=== PATIENT | male | born 1980 | race Caucasian/White ===

== ENCOUNTER 2016-07-30 10:22 | Inpatient (IN) | payer OTHER ==
[2016-07-14 10:27] VITALS: BMI 36.0
[~2016-07-30] VITALS: Ht 180.3 cm; Wt 118.2 kg
[2016-07-30] VITALS (7 sets, daily range): BP systolic 114–145; BP diastolic 70–80; PULSE 87–101; TEMP 36.3–37; O2SAT 92–96; Ht 180.3 cm; Wt 118.2 kg
[~2016-07-30 10:22] MED LIST: CEFAZOLIN 2000 MG/60 ML D5W IV SCH; DIAZ10TA PO; LACTATED RINGER'S 1000ML 1,000 ML IV SCH; LYR50 PO; METO25TA56 PO; OXYC-57 PO
[2016-07-30] MEDS ORDERED: CYCL10TA6 PO (10:49)
--- NOTE | 2016-07-30 12:06 | History & Physical Bridge Note ---
H&P Re-Evaluation Bridge Note: I have examined the patient, reviewed the History & Physical and in the interval since the performance of the History & Physical I have noted the following changes of clinical significance: No changes noted
--- NOTE | 2016-07-30 12:07 | History and Physical ---
History & Physical Date Jul 30, 2016. Chief Complaint back and leg pain History of Present Illness The patient is a 36 year old male with complaints of Additional History Hepatic Disease: No Endocrine Disorder: No Kidney Disease: No Hypertension: No Heart Disease: No Bleeding Tendencies: No Infectious Diseases: No Allergies Coded Allergies: No Known Allergies (Unverified , 07/30/16) Home Medications Scheduled Cyclobenzaprine Hcl (Flexeril), 10 MG PO BID Metoprolol Tartrate (Lopressor) (Lopressor), 25 MG PO QAM Pregabalin (Lyrica), 150 MG PO TID Scheduled PRN Diazepam (Valium), 10 MG PO TID PRN for RN Oxycodone/Acetaminophen 5MG/325MG (Percocet 5MG/325MG), 1-2 TABLET PO Q4-6H PRN for Pain Physical Examination Skin: warm/dry, no rash Eyes: normal inspection, EOMI, sclerae normal ENT: normal ENT inspection, pharynx normal Head: normocephalic, atraumatic Neck: supple, no adenopathy, trachea midline Respiratory/Chest: lungs clear, normal breath sounds, no respiratory distress Cardiovascular: regular rate, rhythm, no edema, no murmur Abdomen / GI: normal bowel sounds, non tender Back: normal inspection Extremities: normal inspection, normal range of motion Neurologic/Psych: no motor/sensory deficits, alert, normal reflexes, oriented x 3 Diagnosis lumbar stenosis Plan of Treatment revision decompression fusion L3-4
[2016-07-30] MEDS ORDERED: MIDAZOLAM HCL 1 MG/ML 2ML VIAL ONE (12:12)
[2016-07-30] MEDS ORDERED: FENTANYL CITRATE INJ 50 MCG/1 ML 2 ML VIAL ONE ×2 (12:12→13:14)
[2016-07-30] MEDS ORDERED: BUPIVACAINE/EPINEPHRINE 0.5% MPF 1:200,000 30 ML VIAL ONE (12:39)
[2016-07-30] MEDS ORDERED: SODIUM CHLORIDE 0.9% PF 50 ML VIAL ONE (12:39)
[2016-07-30] MEDS ORDERED: BACITRACIN 50000 UNIT VIAL ONE (12:39)
[2016-07-30] MEDS ORDERED: HYDROmorphone INJ 2 MG/ML SYR/VIAL ONE (13:14)
[2016-07-30] MEDS ORDERED: ONDANSETRON INJ 2 MG/ML 2 ML VIAL IV PRN ×2 (13:30→14:15)
[2016-07-30] MEDS ORDERED: PROMETHAZINE HCL INJ 6.25 MG in SODIUM CHLORIDE 0.9% 50ML 50 ML IV PRN (13:30)
[2016-07-30] MEDS ORDERED: ATROPINE SULFATE 0.1 MG/ML 5ML SYR IV PRN (13:30)
[2016-07-30] MEDS ORDERED: EpHEDrine SULFATE INJ 50 MG/ML AMP IV PRN (13:30)
[2016-07-30] MEDS ORDERED: PHENYLEPHRINE HCL INJ 10 MG/ML VIAL ONE (13:52)
[2016-07-30] MEDS ORDERED: ONDANSETRON INJ 2 MG/ML 2 ML VIAL ONE ×2 (13:57→14:26)
[2016-07-30] MEDS ORDERED: ROCURONIUM BROMIDE 10 MG/ML 5 ML VIAL ONE (13:57)
[2016-07-30] MEDS ORDERED: PROPOFOL IV EMULSION 10 MG/ML 20 ML VIAL IV ONE (13:57)
[2016-07-30] MEDS ORDERED: DEXAMETHASONE SOD INJ 4 MG/ML VIAL ONE (13:57)
[2016-07-30] MEDS ORDERED: LIDOCAINE HCL 2% 2 ML VIAL (20MG/ML) ONE (13:57)
[2016-07-30] MEDS ORDERED: DURASEAL DURAL SEALANT 5ML TOP ONE (14:07)
[2016-07-30] MEDS ORDERED: SODIUM CHLORIDE 0.9% 1000ML 1,000 ML IV SCH (14:15)
[2016-07-30] MEDS ORDERED: hydrOXYzine HCL 25 MG TAB PO PRN (14:15)
[2016-07-30] MEDS ORDERED: SOD PHOSPHATE/SOD BIPHOSPHATE ENEMA 132 ML BTL PR PRN (14:15)
[2016-07-30] MEDS ORDERED: ACETAMINOPHEN IV 100 ML IV PRN (14:15)
[2016-07-30] MEDS ORDERED: BISACODYL 10 MG SUPP PR PRN (14:15)
[2016-07-30] MEDS ORDERED: DO NOT ADMINISTER PNEUMOCOCCAL VACCINE PRN ×2 (14:15)
[2016-07-30] MEDS ORDERED: MAGNESIUM HYDROXIDE SUSP 30 ML UDC PO PRN (14:15)
[2016-07-30] MEDS ORDERED: DO NOT ADMINISTER FLU VACCINE PRN ×3 (14:15)
[2016-07-30] MEDS ORDERED: FAMOTIDINE 20 MG TAB PO PRN (14:15)
[2016-07-30] MEDS ORDERED: NALOXONE HCL 0.4 MG/1 ML VIAL/CARP IV PRN ×2 (14:15)
[2016-07-30] MEDS ORDERED: PROMETHAZINE HCL INJ 12.5 MG in SODIUM CHLORIDE 0.9% 50ML 50 ML IV PRN (14:15)
[2016-07-30] MEDS ORDERED: LORAZEPAM INJ 0.5 MG in SYRINGE 0.75 ML IV PRN (14:15)
[2016-07-30] MEDS ORDERED: ALUMINUM/MAGNESIUM SUSP 30 ML UDC PO PRN (14:15)
[2016-07-30] MEDS ORDERED: METOCLOPRAMIDE HCL INJ 5 MG/ML 2 ML VIAL IV PRN (14:15)
--- NOTE | 2016-07-30 14:25 | DIAGNOSTIC IMAGING REPORT ---
LUMBAR SPINE 2 OR 3 VIEW CLINICAL HISTORY: L3-L4 Decompression/Fusion COMPARISON STUDY: No previous studies for comparison. Fluoroscopy time: 18 seconds. FINDINGS: 2 fluoroscopic images were obtained. Exact localization is difficult on this exam given partial visualization of the lumbar spine. There is a posterior decompression. There are bilateral pedicle screws likely at the L3 and L4 levels. IMPRESSION: Fluoroscopic images demonstrating an L3-L4 decompression and bilateral pedicle screw fusion Electronically signed by: Santiago Lopez M.D. 07/30/2016 2:24 PM Dictated Date/Time: 07/30/2016 2:23 PM
[2016-07-30] MEDS ORDERED: NEOSTIGMINE METHYLSULFATE 1 MG/ML 10ML VIAL ONE (14:26)
[2016-07-30] MEDS ORDERED: GLYCOPYRROLATE INJ 0.2 MG/ML VIAL ONE (14:26)
[2016-07-30] MEDS ORDERED: KETOROLAC TROMETHAMINE 30 MG/ML VIAL ONE (14:26)
[2016-07-30] MEDS ORDERED: FLOSEAL HEMOSTATIC MATRIX 10ML TOP ONE (14:29)
[2016-07-30] MEDS: HYDROmorphone HCL 0.5MG/ML 50 ML CASSETTE IV PRN ×3 (14:52→22:52)
[2016-07-30] MEDS: FENTANYL CITRATE INJ 50 MCG/1 ML 2 ML VIAL IV PRN ×4 (14:53→15:08)
[2016-07-30] MEDS ORDERED: LORAZEPAM 2 MG/ML 1 ML VIAL ONE (15:16)
[2016-07-30] MEDS ORDERED: NURSING VERBAL MED ORDER ONE (15:30)
[2016-07-30] MEDS: HYDROmorphone INJ 1 MG/ML SYR IV PRN ×4 (15:30→15:48)
--- NOTE | 2016-07-30 16:06 | OPERATIVE REPORT ---
DATE OF OPERATION: 07/30/2016 PREOPERATIVE DIAGNOSES: Spinal stenosis and degenerative disk disease, L3-L4. POSTOPERATIVE DIAGNOSES: Same with dural ectasia. PROCEDURES PERFORMED: 1. Revision decompression, L3-L4. 2. Posterior spinal fusion, L3-L4. 3. Placement of posterior instrumentation using Orthros rods and screws, L3-L4. 4. Placement of Infuse collagen sponge combined with Mastergraft and Lindsay bone grafting in the posterior gutters. 5. Placement of locally harvested morselized autograft in the posterior gutters. SURGEON: Dr. Norman Ortiz. HEAD OF HUMAN RESOURCES: Kojo Enriquez PA-C. Due to the complex nature of the procedure, the entire surgery was performed with the assistant tennis coach of Kojo Enriquez PA-C. The healthcare administrative assistant, under direct supervision, was involved in the actual performance of all aspects of the surgical procedure including hemostasis, tissue retraction and incision, instrument management, patient positioning, and wound closure. ANESTHESIA: General. DISPOSITION: The patient awakened and taken to PACU in stable condition. HISTORY OF PATIENT'S PROBLEMS: A 36-year-old male that presents with above-mentioned diagnoses. After failing an extensive course of nonoperative care, he elected to undergo the above-mentioned procedures. Risks, benefits, pros, cons, and alternatives were outlined in detail preoperatively. DESCRIPTION OF PROCEDURE: The patient was met with preoperatively, the case discussed and all questions were addressed. At that point, the patient was taken back to operative suite and after undergoing successful general intubation by the department of anesthesia, he was placed in prone position on Socrates table atop Bienvenido frame. All bony prominences were well padded and the eyes were inspected to ensure there was no external pressure placed upon them. At this point, the lumbar spine was prepped and draped in normal sterile fashion. Sharp dissection with the assistance of Bovie cautery was performed down to exposing the remaining lamina and transverse processes of L3 and L4 bilaterally. From a caudal to cephalad fashion, we dissected through the previous scar and identified the bony parameter and began decompression. We could be noted marked lack of dura. We tried to extend to clean dural margins, but did note diffuse dural ectasia. Subsequently, we halted the decompression at this point, placed Duragen patch and DuraSeal over the laminotomy site and dural ectasia. I then proceeded to fuse the segment by placing pedicle screws in L3 and L4 bilaterally with assistance of fluoroscopy locking in the appropriate size david. Transverse processes of L3-L4 were then burred to subcortical bleeding bone. Infuse collagen sponge combined with Mastergraft and locally harvested morselized autograft was placed in the posterior gutters. Incision was then closed with 1-0 Vicryl in the fascia, 2-0 Vicryl subcutaneously, and 4-0 Monocryl for final skin closure. Steri-Strips and sterile dressing placed. The patient was awakened and taken to PACU in stable condition. I attest to the content of the Intraoperative Record and any orders documented therein. Any exceptio ns are noted below.
--- NOTE | 2016-07-30 16:09 | Anesthesiology Progress Note ---
Anesthesia Post Op Note Date & Time Jul 30, 2016 at 16:09 Vital Signs Pain Intensity: 6 Vital Signs Past 12 Hours Date Time Temp Pulse Resp B/P Pulse Ox O2 Delivery O2 Flow Rate FiO2 07/30/16 15:33 91 24 07/30/16 15:33 90 24 99 07/30/16 15:30 112/90 07/30/16 15:28 88 15 100 07/30/16 15:28 87 15 07/30/16 15:25 119/70 07/30/16 15:23 88 19 99 07/30/16 15:23 87 19 07/30/16 15:21 123/91 07/30/16 15:18 84 19 100 07/30/16 15:18 85 19 07/30/16 15:15 119/74 07/30/16 15:13 83 22 99 07/30/16 15:13 88 22 07/30/16 15:11 127/78 07/30/16 15:08 91 22 07/30/16 15:08 92 22 100 07/30/16 15:05 125/83 07/30/16 15:03 86 13 100 07/30/16 15:03 86 13 07/30/16 15:01 120/51 07/30/16 14:58 80 20 07/30/16 14:58 82 20 100 07/30/16 14:56 130/78 07/30/16 14:53 79 21 100 07/30/16 14:53 79 21 07/30/16 14:50 118/77 07/30/16 14:48 77 16 07/30/16 14:48 73 16 99 07/30/16 14:45 121/75 07/30/16 14:43 36.9 73 14 121/71 100 Mask 10 07/30/16 14:43 73 17 07/30/16 14:43 73 17 121/71 100 07/30/16 10:45 36.5 89 22 94 Room Air Notes Mental Status: alert / awake / arousable, participated in evaluation Pt Amnestic to Procedure: Yes Nausea / Vomiting: adequately controlled Pain: adequately controlled Airway Patency, RR, SpO2: stable & adequate BP & HR: stable & adequate Hydration State: stable & adequate Anesthetic Complications: no major complications apparent
[2016-07-30] MEDS: LACTATED RINGER'S 1000ML 1,000 ML IV SCH ×2 (16:47→21:14)
[2016-07-30] MEDS: DEXAMETHASONE INJ 6 MG in SYRINGE 0 ML IV SCH (20:02)
[2016-07-30] MEDS: CEFAZOLIN IV 2,000 MG in DEXTROSE 5% 50ML 50 ML IV SCH (20:02)
[2016-07-30] MEDS: DOCUSATE SODIUM/SENNA 50/8.6MG TAB PO SCH (21:14)
[2016-07-30] MEDS: PREGABALIN 150 MG CAP PO SCH (21:14)
[2016-07-30] MEDS: LORAZEPAM 0.5 MG TAB PO PRN (23:41)
[2016-07-31] VITALS (8 sets, daily range): BP systolic 120–148; BP diastolic 67–74; PULSE 86–111; TEMP 36.6–37.6; O2SAT 92–95
[2016-07-31] MEDS: DIAZEPAM 5MG TAB PO PRN ×2 (01:31→20:22)
[2016-07-31] MEDS: DEXAMETHASONE INJ 6 MG in SYRINGE 0 ML IV SCH ×2 (04:53→11:25)
[2016-07-31] MEDS: LACTATED RINGER'S 1000ML 1,000 ML IV SCH (04:53)
[2016-07-31] MEDS: CEFAZOLIN IV 2,000 MG in DEXTROSE 5% 50ML 50 ML IV SCH (04:53)
[2016-07-31] MEDS: ACETAMINOPHEN 500 MG TAB PO PRN (05:02)
[2016-07-31] MEDS ORDERED: NURSING VERBAL MED ORDER ONE (06:00)
[2016-07-31] MEDS ORDERED: DC PCA SCH (06:00)
[2016-07-31] MEDS: HYDROmorphone INJ 1 MG/ML SYR IV PRN ×5 (06:08→20:25)
[2016-07-31 06:50] LABS: BASO % 0.1 %; BASO ABS # 0.01 K/uL (0-0.2); COMPLETE YES; HEMATOCRIT 39.2 % (42-52); IG% 0.3 %; LYMPH % 5.9 %; LYMPH ABS # 0.89 K/uL (1.2-3.4); MEAN CELL VOLUME 89.1 fL (80-100); MEAN CORPUSCULAR HEMOGLOBIN 31.6 pg (25-34); MEAN CORPUSCULAR HGB CONC 35.5 g/dl (32-36); MEAN PLATELET VOLUME 10.6 fL (7.4-10.4); MONO % 4.5 %; NEUT % 89.2 %; PLATELET COUNT 215 K/uL (130-400)
[2016-07-31 07:20] LABS: BUN/CREATININE RATIO 12.8 (10-20); CALCIUM 8.9 mg/dl (8.5-10.1); POTASSIUM 3.9 mmol/L (3.5-5.1)
[2016-07-31] MEDS: PREGABALIN 150 MG CAP PO SCH ×3 (08:29→21:38)
[2016-07-31] MEDS: OXYCODONE HCL IR 5 MG TAB (IMMEDIATE RELEASE) PO PRN ×2 (08:30→15:59)
[2016-07-31] MEDS: NICOTINE 14 MG/24 HR TDSY TD SCH (09:00)
[2016-07-31] MEDS ORDERED: METOPROLOL TARTRATE 25 MG TAB PO SCH (09:00)
--- NOTE | 2016-07-31 10:37 | PROGRESS NOTE ---
DATE: 07/31/2016 SUBJECTIVE: Postop day #1. Back pain is controlled. Denies any headaches, nausea or vomiting. Denies any significant leg pain. Vital signs are stable. T max 37.1. PHYSICAL EXAMINATION: He has good strength at testing. He is cooperative, appears relatively comfortable. ASSESSMENT: Status post lumbar decompression and fusion. PLAN: At this time, I explained to the patient will maintain bed rest today. ____ intraoperatively with a dural ectasia and we must let things heal over the next 48 hours prior to any significant activity, he understands and agrees.
[2016-07-31] MEDS: KETOROLAC TROMETHAMINE 30 MG/ML VIAL IV PRN ×2 (11:29→20:18)
[2016-07-31] MEDS: HYDROmorphone INJ 0.5 MG/0.5 ML SYR IV PRN (17:37)
[2016-07-31] MEDS: HYDROCHLOROTHIAZIDE 25 MG TAB PO SCH (21:24)
[2016-07-31] MEDS: METOPROLOL TARTRATE 25 MG TAB PO SCH (21:26)
[2016-07-31] MEDS: DOCUSATE SODIUM/SENNA 50/8.6MG TAB PO SCH (21:39)
[2016-08-01] MEDS: HYDROmorphone INJ 1 MG/ML SYR IV PRN ×4 (02:15→16:13)
[2016-08-01] MEDS: KETOROLAC TROMETHAMINE 30 MG/ML VIAL IV PRN ×3 (02:57→23:55)
[2016-08-01] MEDS: HYDROmorphone INJ 0.5 MG/0.5 ML SYR IV PRN ×2 (03:23→19:38)
[2016-08-01] MEDS: POLYETHYLENE (MIRALAX) 17 GM PACK PO SCH ×3 (06:00→17:59)
[2016-08-01 07:25] VITALS: BP 142/87; PULSE 74; TEMP 36.7; O2SAT 94
[2016-08-01] MEDS ORDERED: RXC5 PO (08:44)
--- NOTE | 2016-08-01 08:45 | Discharge Instructions ---
Discharge Instructions Date of Service Aug 01, 2016. Admission Reason for Admission: Lumbar Spinal Stenosis Discharge Discharge Diagnosis / Problem: stenosis Discharge Goals Goal(s): Improve function Activity Recommendations Activity Limitations: per Instructions/Follow-up section . Instructions / Follow-Up Instructions / Follow-Up ACTIVITY RECOMMENDATIONS: SELF CARE INSTRUCTIONS AFTER THORACIC/LUMBAR FUSIONS 1. You may walk to your tolerance. It is good exercise for your legs and back. Expect some back and intermittent leg aches and pains. 2. You may perform "counter-top" level activities (make a sandwich, ian with a project, etc.). 3. No bending or lifting of more than 10 pounds or back twisting of any nature (roll like a log when turning in bed). 4. You may ride in a car for 20-30 minutes at a time. No driving until after your first visit with your doctor. 5. Frequent changes of position and restricting sitting to 30 minutes at a time will help limit the amount of back spasms and stiffness you may experience. 6. You may discontinue the use of ambulatory aids (cane, crutches, etc.) once your strength and confidence allow. 7. You may manager of maintenance the shower and let water strike your incision when you arrive home at least once daily. Do not take a tub bath, sit in a hot tub or go into a swimming pool until after your first recheck in the office. SPECIAL CARE INSTRUCTIONS: VERY IMPORTANT TO READ AND REVIEW A. Your surgical incision has been closed with a cosmetic suture under the skin that will dissolve in about 6 weeks. In 14 days, you can use a pair of clean scissors and cut the suture that is left outside of the skin at the ends of your incision. 1. The small skin tapes can be removed 7 days after surgery if they have not fallen off by that point. 2. You may keep the wound open to air as much as possible to promote healing after post-op day number 5 unless told otherwise by your doctor. 3. If you think the wound looks like it is becoming infected (redness or worsening drainage) and/or you are experiencing fever, chill or worsening back pain and muscle spasms, contact the office so that we may evaluate you as soon as possible. B. Complications are uncommon, but please contact us if you have any signs or symptoms of: 1. wound infection (fever higher than 102.5 degrees F, redness, separation of wound, drainage, or increasing pain from the incision) 2. blood clots in legs (pain, swelling, redness and warmth in legs) 3. urinary tract infection (fever higher than 102.5 degrees F, burning upon urination or increased frequency of urination) 4. nerve problems (inability to walk on your toes or heels, numbness, loss of bowel or bladder control) 5. any other symptoms that concern you C. Please call the office at if you have any concerns or questions about your operation or recovery. D. No smoking! Smoking drastically decreases the chance of a solid fusion. E. Do not take any anti-inflammatory medications (Indocin, Advil, Motrin, Aspirin, Naprosyn, etc.) as these may inhibit the chance of a solid fusion. Tylenol is okay to take for pain. MANAGING PAIN AFTER SPINAL SURGERY 1. Narcotic medication is intended for short-term use and will be provided for surgical pain. Surgical pain usually lasts for a period of 4-6 weeks. Narcotic medication includes Percocet, Vicodin, Darvocet, Tylenol #3 or Lortab. 2. Longer-term pain is more appropriately treated with non-narcotic medication such as Tylenol ES. 3. Muscle spasm is not appropriately treated with narcotics. Muscle relaxers such as Soma, Flexeril or Skelaxin can be used along with Tylenol ES. 4. Remember that we all live with some "aches and pains". This is not unusual or uncommon after an injury or as we get older. a. Back pain is expected and may include muscle spasms for 4 to 6 weeks after surgery. The pain should gradually improve. If the pain worsens for no apparent reason, please contact the office. b. Intermittent leg pain may also be experienced and should not be concerned about unless it worsens for no apparent reason. If so, please contact the office. 5. We will provide appropriate medication within the normal guidelines of their prescribed use. We will also be very cautious and aware of potential abuse and extended duration of patients' medication needs. a. Pain medications are for your comfort and to assist with sleep and rest so that the tissue can heal. They are not provided in order to return to normal activity and should not be used through the day. To do so or worsening pain at night can result from ongoing tissue damage and development of tolerance to the prescribed medicine. 6. Please allow 2-3 days to process refills. Prescriptions will not be mailed but must be picked up at the office. FOLLOW UP VISIT: Keep your scheduled follow-up appointment. Any questions, please call the office at . Current Hospital Diet Patient's current hospital diet: Regular Diet Discharge Diet Recommended Diet: Regular Diet Procedures Procedures Performed: L3-L4 Revision Decompression, Posterior instrumented fusion, application of bone morphogenetic protein and Lindsay allograft Pending Studies Studies pending at discharge: no Medical Emergencies . Who to Call and When: Medical Emergencies: If at any time you feel your situation is an emergency, please call 911 immediately. . Non-Emergent Contact Non-Emergency issues call your: Primary Care Provider . "Provider Documentation" section prepared by Norman Ortiz. VTE Core Measure Inpt VTE Proph given/why not?: Doreen Ruff, SCD's
--- NOTE | 2016-08-01 09:29 | PROGRESS NOTE ---
DATE: 08/01/2016 SUBJECTIVE: Initially complained of back pain only. No leg pain. No headaches, nausea or vomiting. Vital signs stable. T-max 36.7. On exam, he has good strength to testing. Appears alert and oriented. We did get him up to a chair already this morning. ASSESSMENT: Status post lumbar decompression and fusion. PLAN: At this time, will initiate transfers and bathroom privileges today, formalized therapy to begin Tuesday.
[2016-08-01] MEDS: HYDROCHLOROTHIAZIDE 25 MG TAB PO SCH ×2 (09:30→21:13)
[2016-08-01] MEDS: LORAZEPAM 0.5 MG TAB PO PRN ×2 (09:30→23:59)
[2016-08-01] MEDS: METOPROLOL TARTRATE 25 MG TAB PO SCH ×2 (09:30→21:13)
[2016-08-01] MEDS: NICOTINE 14 MG/24 HR TDSY TD SCH (09:31)
[2016-08-01] MEDS: PREGABALIN 150 MG CAP PO SCH ×3 (09:35→21:17)
[2016-08-01] MEDS: OXYCODONE HCL IR 5 MG TAB (IMMEDIATE RELEASE) PO PRN ×3 (11:00→23:52)
[2016-08-01] MEDS: ACETAMINOPHEN 500 MG TAB PO PRN ×2 (11:01→19:37)
[2016-08-01] MEDS: DIAZEPAM 5MG TAB PO PRN ×2 (11:02→21:16)
[2016-08-01 15:13] VITALS: BP 131/76; PULSE 77; TEMP 36.6; O2SAT 96
[2016-08-01 21:10] VITALS: BP 127/82; PULSE 93
[2016-08-01] MEDS: DOCUSATE SODIUM/SENNA 50/8.6MG TAB PO SCH (21:12)
[2016-08-01] MEDS ORDERED: NURSING DECISION MEDICATION ORDER SCH (22:00)
[2016-08-01 23:05] VITALS: BP 133/80; PULSE 83; TEMP 36.7; O2SAT 95
[2016-08-02] MEDS: OXYCODONE HCL IR 5 MG TAB (IMMEDIATE RELEASE) PO PRN ×2 (07:37→12:57)
[2016-08-02 07:57] VITALS: BP 141/86; PULSE 70; TEMP 36.6; O2SAT 99
--- NOTE | 2016-08-02 08:30 | Anesthesiology Progress Note ---
Anesthesia Post Op Note Date & Time Aug 02, 2016 at 08:30 Vital Signs Pain Intensity: 8.0 Vital Signs Past 12 Hours Date Time Temp Pulse Resp B/P Pulse Ox O2 Delivery O2 Flow Rate FiO2 08/02/16 07:57 36.6 70 20 141/86 99 Room Air 08/02/16 07:30 Room Air 08/01/16 23:05 36.7 83 16 133/80 95 Room Air 08/01/16 21:10 93 127/82 Notes Mental Status: alert / awake / arousable, participated in evaluation Pt Amnestic to Procedure: Yes Nausea / Vomiting: adequately controlled Pain: adequately controlled Airway Patency, RR, SpO2: stable & adequate BP & HR: stable & adequate Hydration State: stable & adequate Anesthetic Complications: no major complications apparent
[2016-08-02] MEDS: PREGABALIN 150 MG CAP PO SCH (09:01)
[2016-08-02] MEDS: METOPROLOL TARTRATE 25 MG TAB PO SCH (09:02)
[2016-08-02] MEDS: NICOTINE 14 MG/24 HR TDSY TD SCH (09:03)
[2016-08-02] MEDS: LORAZEPAM 0.5 MG TAB PO PRN (09:03)
[2016-08-02] MEDS: HYDROCHLOROTHIAZIDE 25 MG TAB PO SCH (09:08)
[2016-08-02 09:47] VITALS: O2SAT 99
[2016-08-02] MEDS: KETOROLAC TROMETHAMINE 30 MG/ML VIAL IV PRN (11:13)
[2016-08-02 11:56] VITALS: BP 136/90; PULSE 76; TEMP 37.2; O2SAT 94
[2016-08-02 12:10] VITALS: BP 136/90; PULSE 76; TEMP 37.2; O2SAT 94
--- NOTE | 2016-08-02 15:26 | DISCHARGE SUMMARY ---
PRINCIPAL DIAGNOSIS: Spinal stenosis. HOSPITAL COURSE FOLLOWS: On July 30, the patient underwent lumbar decompression and fusion, tolerated this well and taken to the orthopedic floor postoperatively. We did maintain bed rest postop day #1. Postop day 2 was up and ambulatory. No headaches. No leg pain. Pain controlled. On postop day #2, he was subsequently discharged home. Discharge orders and instructions found on the chart for further review.
== END 2016-08-02 13:49 | disposition home or self-care (01) | DRG 460 ==
LOC: ENRESERVDT → ENRESERVTM → C.ACU 10:22 → C.3E 12:00
PROVIDERS: ADMIT Orthopaedic Surgery Orthopaedic Surgery of the Spine; ATTEND Orthopaedic Surgery Orthopaedic Surgery of the Spine
PROC: 0SG0071 Fusion of Lumbar Vertebral Joint with Autologous Tissue Substitute, Posterior Approach, Posterior Column, Open Approach (ICD-10-PCS; principal; 2016-07-30 12:55)
PROC: 3E0V0GB Introduction of Recombinant Bone Morphogenetic Protein into Bones, Open Approach (ICD-10-PCS; principal; 2016-07-30 12:55)
PROC: 00UT0JZ Supplement Spinal Meninges with Synthetic Substitute, Open Approach (ICD-10-PCS; principal; 2016-07-30 12:55)
DX: M48.06 Spinal stenosis, lumbar region (principal); G95.89 Other specified diseases of spinal cord; M51.36 Other intervertebral disc degeneration, lumbar region; Z98.1 Arthrodesis status

== ENCOUNTER 2016-08-04 02:26 | Inpatient (IN) | payer OTHER ==
[~2016-08-04] VITALS: Ht 180.3 cm; Wt 118.2 kg
[~2016-08-04 02:26] MED LIST changes: -CEFAZOLIN 2000 MG/60 ML D5W IV SCH; +CYCL10TA6 PO; -LACTATED RINGER'S 1000ML 1,000 ML IV SCH; +RXC5 PO
[2016-08-04] MEDS ORDERED: NURSING VERBAL MED ORDER ONE ×2 (03:00→05:00)
[2016-08-04 04:35] VITALS: BP 140/80; PULSE 98; TEMP 37.1; O2SAT 99
[2016-08-04 04:56] VITALS: Ht 180.3 cm; Wt 118.2 kg
[2016-08-04] MEDS ORDERED: HYDROmorphone INJ 1 MG/ML SYR IV PRN (05:00)
[2016-08-04] MEDS ORDERED: LORAZEPAM INJ 1 MG in SYRINGE 0.5 ML IV PRN (05:00)
[2016-08-04] MEDS ORDERED: ONDANSETRON INJ 2 MG/ML 2 ML VIAL IV PRN (05:00)
[2016-08-04] MEDS ORDERED: DIAZEPAM 5MG TAB PO PRN (05:15)
[2016-08-04] MEDS: SODIUM CHLORIDE 0.9% 1000ML 1,000 ML IV SCH ×3 (05:26→17:35)
[2016-08-04] MEDS: HYDROmorphone INJ 2 MG/ML SYR/VIAL IV PRN ×3 (05:27→17:53)
[2016-08-04 07:22] VITALS: BP 117/68; PULSE 95; TEMP 36.8; O2SAT 94
[2016-08-04] MEDS ORDERED: DEXAMETHASONE SOD INJ 10 MG/ML VIAL IV ONE (09:15)
[2016-08-04] MEDS: CYCLOBENZAPRINE HCL 10 MG TAB PO SCH ×2 (09:17→21:16)
[2016-08-04] MEDS: PREGABALIN 150 MG CAP PO SCH ×3 (09:17→21:16)
[2016-08-04] MEDS: METOPROLOL TARTRATE 25 MG TAB PO SCH (09:18)
[2016-08-04] MEDS ORDERED: DEXAMETHASONE INJ 10 MG in SYRINGE 0 ML IV SCH (10:00)
--- NOTE | 2016-08-04 11:17 | HISTORY & PHYSICAL EXAMINATION ---
DATE OF ADMISSION: 08/04/2016 CHIEF COMPLAINT: Back spasms. HISTORY OF PRESENT ILLNESS: A 36-year-old male well known to me status post lumbar decompression and fusion L3-4 last week. He has been discharged home on Tuesday, was doing quite well, but he states that last evening he twisted putting on his sock and had a sudden onset of severe left-sided flank and back spasms. He states some pain does radiate into the buttock. Spasms are quite strong and limit his ability to ambulate. He denies any loss of bowel or bladder control. Denies any nausea, vomiting, headaches or photophobia. When at rest he denies any significant pain. It is induced with motion. PHYSICAL EXAMINATION: On physical exam, he is quite comfortable in the supine position, but when we did roll him to inspect his incision he got the onset of back spasms again affecting the left paravertebral musculature and flank. He does describe some pain in the buttock and leg. He does give it a +5/5 bilateral plantarflexion, dorsiflexion, sensory symmetric and intact bilateral lower extremities. Again, the incision does appear clean, dry and intact. Modest swelling appreciated. ASSESSMENT: Status post lumbar decompression and fusion. PLAN: At this time, he is neurologically intact, is comfortable at rest. We will continue with bed rest today. I will add Decadron to see if this controls some of his spasms and act as an anti-inflammatory. We will assess his progress tomorrow, hopefully begin transition to a chair and reinitiate ambulation.
[2016-08-04] MEDS: LORAZEPAM 1 MG TAB PO PRN (13:30)
[2016-08-04 15:41] VITALS: BP 147/88; PULSE 87; TEMP 36.8; O2SAT 97
[2016-08-04] MEDS: DEXAMETHASONE INJ 10 MG in SYRINGE 0 ML IV SCH (17:35)
[2016-08-04 23:11] VITALS: BP 119/75; PULSE 59; TEMP 36.4; O2SAT 97
[2016-08-05] MEDS: OXYCODONE HCL IR 5 MG TAB (IMMEDIATE RELEASE) PO PRN ×3 (00:12→15:42)
[2016-08-05] MEDS: SODIUM CHLORIDE 0.9% 1000ML 1,000 ML IV SCH ×2 (00:23→07:03)
[2016-08-05] MEDS: DEXAMETHASONE INJ 10 MG in SYRINGE 0 ML IV SCH ×2 (01:38→10:28)
[2016-08-05] MEDS: HYDROmorphone INJ 2 MG/ML SYR/VIAL IV PRN ×3 (01:49→12:56)
[2016-08-05 07:46] VITALS: BP 126/76; PULSE 74; TEMP 36.3; O2SAT 93
[2016-08-05] MEDS: METOPROLOL TARTRATE 25 MG TAB PO SCH (08:42)
[2016-08-05] MEDS: CYCLOBENZAPRINE HCL 10 MG TAB PO SCH (08:42)
[2016-08-05] MEDS: PREGABALIN 150 MG CAP PO SCH ×2 (08:42→13:49)
--- NOTE | 2016-08-05 08:44 | Discharge Instructions ---
Discharge Instructions Date of Service Aug 05, 2016. Admission Reason for Admission: Post-Op Back Pain Discharge Discharge Diagnosis / Problem: post op back pain Discharge Goals Goal(s): Improve function Activity Recommendations Activity Limitations: per Instructions/Follow-up section . Instructions / Follow-Up Instructions / Follow-Up ACTIVITY RECOMMENDATIONS: SELF CARE INSTRUCTIONS AFTER THORACIC/LUMBAR FUSIONS 1. You may walk to your tolerance. It is good exercise for your legs and back. Expect some back and intermittent leg aches and pains. 2. You may perform "counter-top" level activities (make a sandwich, ian with a project, etc.). 3. No bending or lifting of more than 10 pounds or back twisting of any nature (roll like a log when turning in bed). 4. You may ride in a car for 20-30 minutes at a time. No driving until after your first visit with your doctor. 5. Frequent changes of position and restricting sitting to 30 minutes at a time will help limit the amount of back spasms and stiffness you may experience. 6. You may discontinue the use of ambulatory aids (cane, crutches, etc.) once your strength and confidence allow. 7. You may credentialing coordinator the shower and let water strike your incision when you arrive home at least once daily. Do not take a tub bath, sit in a hot tub or go into a swimming pool until after your first recheck in the office. SPECIAL CARE INSTRUCTIONS: VERY IMPORTANT TO READ AND REVIEW A. Your surgical incision has been closed with a cosmetic suture under the skin that will dissolve in about 6 weeks. In 14 days, you can use a pair of clean scissors and cut the suture that is left outside of the skin at the ends of your incision. 1. The small skin tapes can be removed 7 days after surgery if they have not fallen off by that point. 2. You may keep the wound open to air as much as possible to promote healing after post-op day number 5 unless told otherwise by your doctor. 3. If you think the wound looks like it is becoming infected (redness or worsening drainage) and/or you are experiencing fever, chill or worsening back pain and muscle spasms, contact the office so that we may evaluate you as soon as possible. B. Complications are uncommon, but please contact us if you have any signs or symptoms of: 1. wound infection (fever higher than 102.5 degrees F, redness, separation of wound, drainage, or increasing pain from the incision) 2. blood clots in legs (pain, swelling, redness and warmth in legs) 3. urinary tract infection (fever higher than 102.5 degrees F, burning upon urination or increased frequency of urination) 4. nerve problems (inability to walk on your toes or heels, numbness, loss of bowel or bladder control) 5. any other symptoms that concern you C. Please call the office at if you have any concerns or questions about your operation or recovery. D. No smoking! Smoking drastically decreases the chance of a solid fusion. E. Do not take any anti-inflammatory medications (Indocin, Advil, Motrin, Aspirin, Naprosyn, etc.) as these may inhibit the chance of a solid fusion. Tylenol is okay to take for pain. MANAGING PAIN AFTER SPINAL SURGERY 1. Narcotic medication is intended for short-term use and will be provided for surgical pain. Surgical pain usually lasts for a period of 4-6 weeks. Narcotic medication includes Percocet, Vicodin, Darvocet, Tylenol #3 or Lortab. 2. Longer-term pain is more appropriately treated with non-narcotic medication such as Tylenol ES. 3. Muscle spasm is not appropriately treated with narcotics. Muscle relaxers such as Soma, Flexeril or Skelaxin can be used along with Tylenol ES. 4. Remember that we all live with some "aches and pains". This is not unusual or uncommon after an injury or as we get older. a. Back pain is expected and may include muscle spasms for 4 to 6 weeks after surgery. The pain should gradually improve. If the pain worsens for no apparent reason, please contact the office. b. Intermittent leg pain may also be experienced and should not be concerned about unless it worsens for no apparent reason. If so, please contact the office. 5. We will provide appropriate medication within the normal guidelines of their prescribed use. We will also be very cautious and aware of potential abuse and extended duration of patients' medication needs. a. Pain medications are for your comfort and to assist with sleep and rest so that the tissue can heal. They are not provided in order to return to normal activity and should not be used through the day. To do so or worsening pain at night can result from ongoing tissue damage and development of tolerance to the prescribed medicine. 6. Please allow 2-3 days to process refills. Prescriptions will not be mailed but must be picked up at the office. FOLLOW UP VISIT: Keep your scheduled follow-up appointment. Any questions, please call the office at . Current Hospital Diet Patient's current hospital diet: Discharge Diet Recommended Diet: Regular Diet Pending Studies Studies pending at discharge: no Medical Emergencies . Who to Call and When: Medical Emergencies: If at any time you feel your situation is an emergency, please call 911 immediately. . Non-Emergent Contact Non-Emergency issues call your: Primary Care Provider . "Provider Documentation" section prepared by Norman Ortiz. VTE Core Measure Inpt VTE Proph given/why not?: Doreen Ruff, SCD's
--- NOTE | 2016-08-05 08:58 | DISCHARGE SUMMARY ---
PRINCIPAL DIAGNOSIS: Postop back pain. HOSPITAL COURSE FOLLOWS: On 08/04/2016 he was admitted for pain control. I encouraged bed rest and IV Decadron and this worked dramatically. He was up and ambulatory last evening; feels much better today. We will have him undergo official physical therapy and then discharge home. Discharge orders and instructions found on the chart for further review.
[2016-08-05] MEDS ORDERED: NURSING VERBAL MED ORDER ONE (09:30)
[2016-08-05] MEDS: LORAZEPAM 1 MG TAB PO PRN (12:56)
[2016-08-05 15:23] VITALS: BP 147/75; PULSE 96; TEMP 36.5; O2SAT 94
[2016-08-05 17:03] VITALS: BP 147/75; PULSE 96; TEMP 36.5; O2SAT 94
== END 2016-08-05 18:30 | disposition home or self-care (01) | DRG 948 ==
LOC: C.MSN 04:29
PROVIDERS: ADMIT Orthopaedic Surgery Orthopaedic Surgery of the Spine; ATTEND Orthopaedic Surgery Orthopaedic Surgery of the Spine
DX: G89.18 Other acute postprocedural pain (principal); M62.830 Muscle spasm of back; Z98.1 Arthrodesis status